=== PATIENT | female | born 1965 | race Caucasian/White ===

== ENCOUNTER 2020-01-19 01:44 | Emergency (ER) | payer BC ==
[~2020-01-19] VITALS: Ht 162.6 cm; Wt 89.8 kg
[2020-01-19 01:50] VITALS: BP_SYST 158
--- NOTE | 2020-01-19 01:54 | NUR ---
Patient to ER bed 3 to gown for evaluation. Side rails up. Report given to SRAVANTHI CAMARGO.
[2020-01-19] MEDS ORDERED: BACITRACIN 1 GM OINT TP ONE (02:15)
[2020-01-19] MEDS ORDERED: LIDOCAINE 1% 10 MG/ML, 20 ML MDV SUBCUT ONE (02:15)
[2020-01-19] MEDS ORDERED: DIPH-TET-PERTUS Vaccine 0.5 ML VIAL (ADACEL) I.M. ONE (02:15)
--- NOTE | 2020-01-19 02:15 | NUR ---
ER at bedside examining patient.
--- NOTE | 2020-01-19 02:15 | NUR ---
Pt awake, alert, oriented x4. Pt Brought in by self. Pt states that she was washing dishes and one of the glass dishes fell, breaking into shards and cutting her hand. 3 cm laceration is on top of knuckle, extending to metacarpal area. bleeding is well controlled. Pt denies chest pain, nausea, vomiting, diarrhea, shortness of breath, any other medical complaint at this time. Pt states TDAP status is unknown.
--- NOTE | 2020-01-19 02:36 | NUR ---
Dr Romeo bedside performing laceration repair.
[2020-01-19 02:50] VITALS: BP_SYST 158
--- NOTE | 2020-01-19 02:50 | NUR ---
Wound Dressed with bacitracin, covered with clean, dry non-stick guaze.
--- NOTE | 2020-01-19 02:51 | NUR ---
Patient given written and verbal discharge instructions and verbalizes understanding. ER MD discussed with patient the results and treatment provided. Patient in stable condition. ID arm band removed. Suture site intact and dressing applied, no active bleeding. Rx of Motrin 800mg given. Patient educated on pain management and to follow up with PMD. Pain Scale 1/10. Opportunity for questions provided and answered. Medication side effect fact sheet provided.
== END 2020-01-19 02:50 | disposition home or self-care (01) ==
LOC: SED 01:44
DX: S61.211A Laceration without foreign body of left index finger without damage to nail, initial encounter (principal); X58.XXXA Exposure to other specified factors, initial encounter; Y93.89 Activity, other specified; Y92.89 Other specified places as the place of occurrence of the external cause; Y99.8 Other external cause status
CPT/HCPCS: 12001; 90471; 90715; 99283; J2001